=== PATIENT | female | born 1990 | race Asian ===

== ENCOUNTER 2016-03-16 07:01 | Emergency (ER) | payer BC ==
[~2016-03-16] VITALS: Ht 172.7 cm; Wt 88.9 kg
== END 2016-03-16 07:52 | disposition home or self-care (01) ==
LOC: ED 07:01
PROC: 3E1CX8Z Irrigation of Eye using Irrigating Substance (ICD-10-PCS; principal; 2016-03-16)
DX: S05.02XA Injury of conjunctiva and corneal abrasion without foreign body, left eye, initial encounter (principal); S00.252A Superficial foreign body of left eyelid and periocular area, initial encounter; Y92.89 Other specified places as the place of occurrence of the external cause
CPT/HCPCS: 99283

== ENCOUNTER 2017-03-31 18:50 | Emergency (ER) | payer OTHER ==
[~2017-03-31] VITALS: Ht 175.3 cm; Wt 64.4 kg
== END 2017-03-31 19:37 | disposition home or self-care (01) ==
LOC: ED 18:50
DX: K08.89 Other specified disorders of teeth and supporting structures (principal); Z33.1 Pregnant state, incidental
CPT/HCPCS: 99281

== ENCOUNTER 2018-02-20 20:21 | Emergency (ER) | payer OTHER ==
[~2018-02-20] VITALS: Ht 172.7 cm; Wt 95.3 kg
[2018-02-20 21:11] VITALS: BP 170/81; TEMP 98
== END 2018-02-20 21:13 | disposition home or self-care (01) ==
LOC: ED 20:21
DX: J32.8 Other chronic sinusitis (principal)
CPT/HCPCS: 96372; 99283; J0696; J1885; J2001

== ENCOUNTER 2020-03-03 09:41 | Outpatient (CLI) | payer BC | END 2020-03-03 21:50 | disposition home or self-care (01) | LOC: RAD 09:41 | PROVIDERS: ATTEND Nurse Practitioner Family | DX: R07.89 Other chest pain (principal) ==

== ENCOUNTER 2020-05-03 00:03 | Emergency (ER) | payer BC ==
[~2020-05-03] VITALS: Ht 172.7 cm; Wt 101.2 kg
[2020-05-03 01:28] VITALS: BP 129/73; TEMP 98.5
== END 2020-05-03 01:28 | disposition home or self-care (01) ==
LOC: ED 00:03
DX: J01.80 Other acute sinusitis (principal); R51.9 Headache, unspecified
CPT/HCPCS: 96372; 99283; J0696; J1885; J2930

== ENCOUNTER 2020-05-26 09:07 | Outpatient (CLI) | payer BC | END 2020-05-26 21:17 | disposition home or self-care (01) | LOC: CT 09:07 | PROVIDERS: ATTEND Nurse Practitioner Family | DX: G44.52 New daily persistent headache (NDPH) (principal) ==

== ENCOUNTER 2020-07-07 06:36 | Emergency (ER) | payer BC ==
[~2020-07-07] VITALS: Ht 172.7 cm; Wt 98.4 kg
[2020-07-07 06:40] VITALS: TEMP 98.9
[2020-07-07 07:19] LABS: PLATELET COUNT 247 K/uL (152-353)
[2020-07-07 07:36] LABS: POTASSIUM 3.8 mmol/L (3.6-5.2)
[2020-07-07 08:53] VITALS: BP 129/66
== END 2020-07-07 08:53 | disposition home or self-care (01) ==
LOC: ED 06:36
PROVIDERS: Family Medicine
DX: N39.0 Urinary tract infection, site not specified (principal)
CPT/HCPCS: 36415; 80053; 81000; 81025; 85027; 96365; 96375; 99284; J0696; J1885

== ENCOUNTER 2020-09-23 14:25 | Outpatient (CLI) | payer BC ==
[2020-09-23 14:55] LABS: PLATELET COUNT 271 K/uL (152-353)
[2020-09-23 15:01] LABS: POTASSIUM 3.9 mmol/L (3.6-5.2); SODIUM 143 mmol/L (136-145)
== END 2020-09-23 19:41 | disposition home or self-care (01) ==
LOC: RAD 14:25 → LAB 14:25 → RAD 19:41
PROVIDERS: ATTEND Nurse Practitioner Family
DX: R07.89 Other chest pain (principal)
CPT/HCPCS: 36415; 80053; 82550; 82553; 83880; 84484; 85027; 85379

== ENCOUNTER 2021-11-03 17:43 | Outpatient (CLI) | payer OTHER | END 2021-11-03 19:28 | disposition home or self-care (01) | LOC: RAD 17:43 | PROVIDERS: ATTEND Nurse Practitioner Family | DX: R07.9 Chest pain, unspecified (principal) | CPT/HCPCS: 93005 ==

== ENCOUNTER 2021-11-28 12:05 | Outpatient (CLI) | payer OTHER ==
[~2021-11-28] VITALS: Ht 172.7 cm; Wt 105.2 kg
[2021-11-28 12:10] VITALS: BP 135/74; TEMP 98
[2021-11-28 17:16] VITALS: BP 126/65; TEMP 98.1
== END 2021-11-28 18:59 | disposition home or self-care (01) ==
LOC: INF 12:05
PROVIDERS: ATTEND Internal Medicine
DX: D50.9 Iron deficiency anemia, unspecified (principal)
CPT/HCPCS: 96365; 96366; J1756

== ENCOUNTER 2021-12-16 08:54 | Outpatient (CLI) | payer OTHER ==
[~2021-12-16] VITALS: Ht 172.7 cm; Wt 105.2 kg
[2021-12-16 09:04] VITALS: BP 130/71; TEMP 98.3
[2021-12-16 13:26] VITALS: BP 120/56; TEMP 98.1
[2021-12-16 13:58] VITALS: BP 120/62; TEMP 98.3
== END 2021-12-16 19:39 | disposition home or self-care (01) ==
LOC: INF 08:54
PROVIDERS: ATTEND Internal Medicine
DX: D50.9 Iron deficiency anemia, unspecified (principal)
CPT/HCPCS: 96365; 96366; J1756

== ENCOUNTER 2022-03-24 08:59 | Outpatient (CLI) | payer OTHER ==
[~2022-03-24] VITALS: Ht 172.7 cm; Wt 108.9 kg
[2022-03-24 09:04] VITALS: BP 113/68; TEMP 98.1
== END 2022-03-24 21:18 | disposition home or self-care (01) ==
LOC: INF 08:59
PROVIDERS: ATTEND Internal Medicine
DX: D50.9 Iron deficiency anemia, unspecified (principal)
CPT/HCPCS: 96365; 96366; J1756

== ENCOUNTER 2022-04-07 08:03 | Outpatient (CLI) | payer OTHER ==
[~2022-04-07] VITALS: Ht 172.7 cm; Wt 108.9 kg
[2022-04-07 08:10] VITALS: BP 130/72; TEMP 98.5
[2022-04-07 12:50] VITALS: BP 117/72; TEMP 97
== END 2022-04-07 22:48 | disposition home or self-care (01) ==
LOC: INF 08:03
PROVIDERS: ATTEND Internal Medicine
DX: D50.9 Iron deficiency anemia, unspecified (principal)
CPT/HCPCS: 96365; 96366; J1756

== ENCOUNTER 2022-06-03 23:43 | Emergency (ER) | payer OTHER ==
[~2022-06-03] VITALS: Ht 172.7 cm; Wt 108.4 kg
[2022-06-04 01:30] VITALS: BP 131/49; TEMP 98.7
== END 2022-06-04 01:30 | disposition home or self-care (01) ==
LOC: EDBD 23:43 → ED 23:43
DX: S70.362A Insect bite (nonvenomous), left thigh, initial encounter (principal); W57.XXXA Bitten or stung by nonvenomous insect and other nonvenomous arthropods, initial encounter
CPT/HCPCS: 96372; 99283; J1100; J1885

== ENCOUNTER 2022-06-24 21:34 | Emergency (ER) | payer OTHER ==
[~2022-06-24] VITALS: Ht 172.7 cm; Wt 104.3 kg
[2022-06-24 21:42] VITALS: BP 148/81; TEMP 101.8
== END 2022-06-25 02:25 | disposition home or self-care (01) ==
LOC: ED 21:34
DX: N20.0 Calculus of kidney (principal); M79.10 Myalgia, unspecified site; V89.2XXA Person injured in unspecified motor-vehicle accident, traffic, initial encounter
CPT/HCPCS: 81025; 96372; 99283; J1885